=== PATIENT | male | born 1950 | race Caucasian/White ===

== ENCOUNTER 2017-08-15 02:38 | Inpatient (IN) | payer OTHER ==
[~2017-08-15] VITALS: Ht 175.3 cm; Wt 90.0 kg
[2017-08-15 03:48] LABS: HEMATOCRIT 44.4 % (38.0-50.0); MCH 31.4 PG (29.0-34.0); MCHC 34.9 G/DL (30.0-36.0); MCV 90.1 FL (86-99); MEAN PLAT.VOLUME 10.1 uM^3 (9.0-12.4); PLATELET COUNT 125 K/uL (156-360); RBC DIS.WIDTH-CV 13.1 % (11.8-14.6); RBC DIS.WIDTH-SD 43.2 % (39-53); RED BLOOD COUNT 4.93 M/uL (4.00-5.50); WHITE BLOOD COUNT 4.9 K/uL (4.1-10.2)
[2017-08-15 03:59] LABS: CHLORIDE 98 mEq/L (99-109); POTASSIUM 4.4 mEq/L (3.7-5.4); SODIUM 134 mEq/L (136-147)
[2017-08-15 04:01] LABS: GLUCOSE 139 mg/dL (70-99)
[2017-08-15 04:02] LABS: ANION GAP 12 MEQ/L (2-14)
[2017-08-15 04:05] LABS: GFR ESTIMATE (CALCULATED) > 59 mL/min/
[2017-08-15 04:06] LABS: UREA NITROGEN (BUN) 23 mg/dL (9-23)
[2017-08-15] MEDS ORDERED: ESCITALOPRAM OX20 MG PO (04:24)
[2017-08-15] MEDS ORDERED: PRAVASTATIN SOD40 MG PO (04:25)
[2017-08-15] MEDS ORDERED: INDERAL40 MG PO (04:25)
[2017-08-15] MEDS ORDERED: ALPRAZOLAM0.25 M2 PO (04:26)
[2017-08-15] MEDS ORDERED: MELATONIN10 M2 PO (04:26)
[2017-08-15] MEDS ORDERED: CENTRUM SILVER1 EAC3 PO (04:27)
[2017-08-15] MEDS ORDERED: VITAMIN B COMP1 EACH PO (04:27)
[2017-08-15] MEDS ORDERED: C 500 MG TIMED500 MG PO (04:28)
[2017-08-15] MEDS ORDERED: FLAX OIL1000 MG PO (04:29)
[2017-08-15] MEDS ORDERED: ASPIR 8181 M1 PO (04:29)
[2017-08-15] MEDS ORDERED: VITAMIN D2000 UNI1 PO (04:30)
[2017-08-15] MEDS ORDERED: SAW PALMETTO500 MG PO (04:31)
[2017-08-15 07:45] VITALS: BP 137/70
[2017-08-15 10:28] LABS: TOTAL BILIRUBIN 0.6 mg/dL (0.0-1.0)
[2017-08-15 10:29] LABS: ALKALINE PHOSPHATASE 66 IU/L (3-129)
[2017-08-15 10:31] LABS: DIRECT BILIRUBIN 0.2 mg/dL (0.0-0.3)
[2017-08-15 10:32] LABS: LIPASE 56 U/L (1.0-51.0)
[2017-08-15 11:30] VITALS: BP 110/68
[2017-08-15 11:51] LABS: C DIFF TOXIN NEGATIVE (NEGATIVE)
[2017-08-15 11:53] LABS: PROBE CHECK PASS; SPECIMEN PROCESSING CONTROL PASS
[2017-08-15] MEDS ORDERED: ESCITALOPRAM OX10 MG PO (12:25)
[2017-08-15 12:50] LABS: MCV 90.7 FL (86-99)
[2017-08-15 16:10] VITALS: BP 120/64
[2017-08-15 19:00] VITALS: BP 104/57
[2017-08-16] VITALS: BP 125/74
[2017-08-16 00:53] LABS: HEMATOCRIT 37.9 % (38.0-50.0); MCV 89.4 FL (86-99)
[2017-08-16 04:00] VITALS: BP 118/65; BP 125/74
[2017-08-16 07:28] LABS: EOSINOPHIL (%) 1.3 % (0-5); EOSINOPHIL COUNT 0.1 K/uL (0-0.3); HEMATOCRIT 39.7 % (38.0-50.0); IMMATURE GRANULOCYTE (%) 0.7 % (0.0-0.7); INSTRUMENT ABS NEUTROPHIL CT 3.3 K/uL; LYMPHOCYTE COUNT 1.3 K/uL (1.0-2.8); MCH 31.4 PG (29.0-34.0); MCHC 34.8 G/DL (30.0-36.0); MCV 90.4 FL (86-99); MEAN PLAT.VOLUME 9.6 uM^3 (9.0-12.4); MONOCYTE (%) 21.7 % (3-12); MONOCYTE COUNT 1.3 K/uL (0-0.8); NEUTROPHIL (%) 54.6 % (45-76); NEUTROPHIL COUNT 3.3 K/uL (1.8-6.4); PLATELET COUNT 107 K/uL (156-360); RBC DIS.WIDTH-CV 13.2 % (11.8-14.6); RBC DIS.WIDTH-SD 43.8 % (39-53); RED BLOOD COUNT 4.39 M/uL (4.00-5.50)
[2017-08-16 07:45] VITALS: BP 113/67
[2017-08-16 07:54] LABS: ANION GAP 6 MEQ/L (2-14); CHLORIDE 101 MEQ/L (99-109); GFR ESTIMATE (CALCULATED) > 59 mL/min/; GLUCOSE 108 mg/dL (70-99); POTASSIUM 3.9 MEQ/L (3.7-5.4); SAMPLE HEMOLYSIS CHECK 0; SAMPLE ICTERIC CHECK 0; SAMPLE LIPEMIA CHECK 0; SODIUM 135 MEQ/L (136-147); UREA NITROGEN (BUN) 10 mg/dL (9-23)
[2017-08-16 11:56] LABS: HEMATOCRIT 41.9 % (38.0-50.0); MCV 90.5 FL (86-99)
[2017-08-16 12:00] VITALS: BP 127/77
[2017-08-16 16:00] VITALS: BP 124/63
[2017-08-16 20:00] VITALS: BP 133/63
[2017-08-17] VITALS (7 sets, daily range): BP systolic 102–120; BP diastolic 60–73
[2017-08-17 06:41] LABS: EOSINOPHIL COUNT 0.1 K/uL (0-0.3); IMMATURE GRANULOCYTE COUNT 0.1 K/uL; INSTRUMENT ABS NEUTROPHIL CT 4.1 K/uL; LYMPHOCYTE COUNT 1.4 K/uL (1.0-2.8); MCH 30.4 PG (29.0-34.0); MCHC 34.1 G/DL (30.0-36.0); MCV 89.2 FL (86-99); MEAN PLAT.VOLUME 9.4 uM^3 (9.0-12.4); MONOCYTE (%) 19.6 % (3-12); MONOCYTE COUNT 1.4 K/uL (0-0.8); NEUTROPHIL (%) 57.9 % (45-76); NEUTROPHIL COUNT 4.1 K/uL (1.8-6.4); PLATELET COUNT 133 K/uL (156-360); RBC DIS.WIDTH-SD 42.8 % (39-53); RED BLOOD COUNT 4.37 M/uL (4.00-5.50); WHITE BLOOD COUNT 7.1 K/uL (4.1-10.2)
[2017-08-17 07:17] LABS: ANION GAP 9 MEQ/L (2-14); CHLORIDE 101 MEQ/L (99-109); GFR ESTIMATE (CALCULATED) > 59 mL/min/; GLUCOSE 107 mg/dL (70-99); POTASSIUM 3.9 MEQ/L (3.7-5.4); SAMPLE HEMOLYSIS CHECK 0; SAMPLE ICTERIC CHECK 0; SAMPLE LIPEMIA CHECK 0; SODIUM 136 MEQ/L (136-147); UREA NITROGEN (BUN) 8 mg/dL (9-23)
[2017-08-18 03:25] VITALS: BP 107/63
[2017-08-18 07:40] LABS: HEMATOCRIT 38.6 % (38.0-50.0); MCH 30.6 PG (29.0-34.0); MCHC 34.2 G/DL (30.0-36.0); MCV 89.6 FL (86-99); MEAN PLAT.VOLUME 9.7 uM^3 (9.0-12.4); PLATELET COUNT 162 K/uL (156-360); RBC DIS.WIDTH-CV 12.9 % (11.8-14.6); RBC DIS.WIDTH-SD 42.7 % (39-53); RED BLOOD COUNT 4.31 M/uL (4.00-5.50); WHITE BLOOD COUNT 7.1 K/uL (4.1-10.2)
[2017-08-18 08:03] LABS: ALKALINE PHOSPHATASE 60 IU/L (3-129); ANION GAP 5 MEQ/L (2-14); CHLORIDE 103 MEQ/L (99-109); GFR ESTIMATE (CALCULATED) > 59 mL/min/; GLUCOSE 97 mg/dL (70-99); POTASSIUM 4.1 MEQ/L (3.7-5.4); SAMPLE HEMOLYSIS CHECK 0; SAMPLE ICTERIC CHECK 0; SAMPLE LIPEMIA CHECK 0; SODIUM 138 MEQ/L (136-147); TOTAL BILIRUBIN 0.5 MG/DL (0.0-1.0); UREA NITROGEN (BUN) 8 mg/dL (9-23)
[2017-08-18 08:08] LABS: ABS NEUTROPHIL COUNT 3.6; ATYPICAL LYMPHOCYTE 10.7 %; BAND NEUTROPHILS 1.8 % (0-8.0); EOSINOPHIL ABS CT 0.2; EOSINOPHILS 2.7 % (0-5.0); INSTRUMENT ABS NEUTROPHIL CT 3.8 K/uL; LYMPHOCYTES 19.6 % (15.0-45.0); SEG.NEUTROPHILS 49.1 % (46.0-76.0); SMUDGE CELLS 6.3
[2017-08-18 08:26] VITALS: BP 119/77
[2017-08-18 16:02] VITALS: BP 115/69
[2017-08-18 23:00] VITALS: BP 125/68
[2017-08-19 06:18] LABS: HEMATOCRIT 40.6 % (38.0-50.0); MCHC 33.7 G/DL (30.0-36.0); MEAN PLAT.VOLUME 9.7 uM^3 (9.0-12.4); PLATELET COUNT 196 K/uL (156-360); RBC DIS.WIDTH-CV 12.4 % (11.8-14.6); RBC DIS.WIDTH-SD 41.1 % (39-53); RED BLOOD COUNT 4.56 M/uL (4.00-5.50)
[2017-08-19 06:45] LABS: EOSINOPHIL (%) 3.1 % (0-5); EOSINOPHIL COUNT 0.3 K/uL (0-0.3); HEMATOLOGY COMMENT 1 SN; IMMATURE GRANULOCYTE (%) 1.1 % (0.0-0.7); IMMATURE GRANULOCYTE COUNT 0.1 K/uL; INSTRUMENT ABS NEUTROPHIL CT 5.6 K/uL; MONOCYTE (%) 10.9 % (3-12); NEUTROPHIL (%) 62.8 % (45-76); NEUTROPHIL COUNT 5.6 K/uL (1.8-6.4); PLAT.SUFFICIENCY ADEQUATE
[2017-08-19 06:48] LABS: ANION GAP 6 MEQ/L (2-14); CHLORIDE 103 MEQ/L (99-109); GFR ESTIMATE (CALCULATED) > 59 mL/min/; GLUCOSE 103 mg/dL (70-99); POTASSIUM 4.5 MEQ/L (3.7-5.4); SAMPLE HEMOLYSIS CHECK 1; SAMPLE ICTERIC CHECK 0; SAMPLE LIPEMIA CHECK 0; SODIUM 137 MEQ/L (136-147); UREA NITROGEN (BUN) 11 mg/dL (9-23)
[2017-08-19 07:50] VITALS: BP 90/66
[2017-08-19] MEDS ORDERED: CIPROFLOXACIN500 M1 PO (10:32)
== END 2017-08-19 12:23 | disposition home or self-care (01) | DRG 372 ==
LOC: EME 02:38 → 2EAST 05:36 → EDOF 05:36 → ENRESERV 05:40 → 2EAST 07:28
PROVIDERS: Emergency Medicine; Internal Medicine; Physician Assistant Medical
DX: A02.0 Salmonella enteritis (principal); K92.2 Gastrointestinal hemorrhage, unspecified; R15.9 Full incontinence of feces; E87.1 Hypo-osmolality and hyponatremia; E86.0 Dehydration; G47.33 Obstructive sleep apnea (adult) (pediatric); D69.6 Thrombocytopenia, unspecified; E78.5 Hyperlipidemia, unspecified; F32.9 Major depressive disorder, single episode, unspecified; E11.9 Type 2 diabetes mellitus without complications; I10 Essential (primary) hypertension; J45.909 Unspecified asthma, uncomplicated; K58.9 Irritable bowel syndrome, unspecified; K86.89 Other specified diseases of pancreas; R25.1 Tremor, unspecified; Z79.82 Long term (current) use of aspirin; Z87.891 Personal history of nicotine dependence; Z98.1 Arthrodesis status
CPT/HCPCS: 74176; 74177; 80048; 80053; 80076; 83690; 85014; 85018; 85025; 85027; 86850; 86900; 86901; 87077; 87177; 87493; 87506; 99281; 99285; J0744; J2270; J2405; J3010; J7030; J7120; S0030

== ENCOUNTER → 2017-12-17 | Outpatient (CLI) | payer OTHER ==
[~2017-12-17] VITALS: Ht 175.3 cm; Wt 89.8 kg
[~2017-12-17] MED LIST: ALPRAZOLAM0.25 M2 PO; ASPIR 8181 M1 PO; C 500 MG TIMED500 MG PO; CENTRUM SILVER1 EAC3 PO; CIPROFLOXACIN500 M1 PO; ESCITALOPRAM OX10 MG PO; ESCITALOPRAM OX20 MG PO; FLAX OIL1000 MG PO; INDERAL40 MG PO; MELATONIN10 M2 PO; PRAVASTATIN SOD40 MG PO; SAW PALMETTO500 MG PO; VITAMIN B COMP1 EACH PO; VITAMIN D2000 UNI1 PO; XANAX0.25 MG PO
== END | disposition home or self-care (01) ==
LOC: AMB 11-26 08:00 → OPR 11-26 09:45 → AMB 13:14
PROC: 0DBE8ZX Excision of Large Intestine, Via Natural or Artificial Opening Endoscopic, Diagnostic (ICD-10-PCS; principal; 2017-12-17)
DX: Z12.11 Encounter for screening for malignant neoplasm of colon (principal); K57.30 Diverticulosis of large intestine without perforation or abscess without bleeding; K64.8 Other hemorrhoids
CPT/HCPCS: 88305